=== PATIENT | male | born 1990 | race Caucasian/White ===

== ENCOUNTER 2017-10-10 17:05 | Inpatient (IN) ==
--- NOTE | 2017-10-10 17:18 | Emergency Department Note ---
Disposition Clinical Impression: Suicidal ideation Depression Qualifiers: Depression Type: unspecified Qualified Code(s): F32.9 - Major depressive disorder, single episode, unspecified Disposition: Admitted As Inpatient Condition: Fair Forms: ED Satisfaction Letter Time of Disposition: 20:06 Psych HPI - General Chief Complaint: ED Psychiatric Symptoms Stated Complaint: Psych Time Seen by Provider: 10/10/17 17:11 Source: patient, EMS Mode of arrival: ambulatory Limitations: no limitations Nursing Notes Reviewed: Yes Vital Signs Reviewed: Yes - History of Present Illness HPI Narrative: 27-year-old who has a long history of substance abuse is been using amphetamines the last year or so who has had increasing depression over the last several weeks and has had some suicidal ideation today. He last used methamphetamine a couple of days ago. Pt complaint: suicidal ideation, feels depressed If medical clearance, reason: psychiatric condition Onset (ago): Just [employer] Duration: constant History of similar episodes: Yes Improves with: none Worsens with: none Associated Psychiatric Symptoms: depression, suicidal ideation Associated symptoms: Reports: denies other symptoms Traumatic symptoms: denies traumatic injury Treatments prior to arrival: none - Related Data Home Medications Medication Instructions Recorded Confirmed Benadryl 07/11/16 Robitussin 07/11/16 Tylenol 07/11/16 Allergies Allergy/AdvReac Type Severity Reaction Status Date / Time No Known Allergies Allergy Verified 07/11/16 15:55 All systems ED: reviewed and negative except as stated. Constitutional: Denies: fever, chills, weakness, weight change Eyes: Denies: eye pain, eye discharge, vision change ENT ED: Denies: ear pain, throat pain, dental pain, hearing loss, epistaxis, congestion, dysphagia Cardiovascular: Denies: chest pain, palpitations, dyspnea on exertion, edema, syncope Respiratory: Denies: cough, dyspnea, wheezes, hemoptysis, stridor Gastrointestinal: Denies: abdominal pain, nausea, vomiting, diarrhea, constipation, hematemesis, melena, hematochezia Genitourinary: Denies: urgency, dysuria, frequency, hematuria Musculoskeletal: Denies: back pain, neck pain, arthralgia, myalgia Integumentary: Denies: rash, abrasion, lesions Neurological: Denies: headache, weakness, numbness, paresthesias, confusion, abnormal gait, vertigo Psychiatric: Reports: depression, suicidal thoughts. Denies: anxiety, homicidal thoughts, auditory hallucinations, visual hallucinations Endocrine: Denies: fatigue Hematological/Lymphatic: Denies: easy bleeding, easy bruising Allergic/Immunologic: Denies: facial swelling, urticaria Past Medical History - Past Medical History Medical history: Reports: no medical history Psychiatric history: Reports: no psych history - Social History Smoking Status: Never smoker Smokeless Tobacco Status: No Alcohol use: Reports: none Drug use: Reports: methamphetamine Physical Exam - General Limitations: no limitations General appearance: alert, in no apparent distress - Head Head exam: atraumatic, normocephalic, normal inspection - Eye Eye exam: Present: normal appearance, PERRL, EOMI - ENT ENT exam: normal exam, normal oropharynx, mucous membranes moist - Neck Neck exam: Present: normal inspection, full ROM, trachea midline - Chest Chest inspection: Present: normal inspection, symmetric chest wall rise - Respiratory Respiratory exam: Present: normal lung sounds bilaterally - Cardiovascular Cardiovascular exam: Present: regular rate, normal rhythm, normal heart sounds - Abdominal Exam Abdominal exam: Present: soft, Non-Tender. Absent: tenderness, distention, guarding, rebound, rigidity - Extremities Exam Extremities exam: Present: normal inspection, full ROM. Absent: tenderness, pedal edema - Expanded Lower Extremity Exam Neurovascular/Tendon exam: Absent: motor deficit, sensory deficit, tendon deficit Gait: observed and normal - Back Exam Back exam: Present: normal inspection, full ROM. Absent: tenderness - Neurological Exam Neurological exam: Present: alert, oriented X3 - Psychiatric Psychiatric exam: Present: depressed, suicidal ideation - Skin Skin exam: Present: warm, dry, intact, normal color Course - Reevaluation(s) Reevaluation #1: 27-year-old with a history of substance abuse the past comes in with suicidal ideation with depression. Patient will be admitted to psychiatry. Time: 20:06 Vital Signs Temperature 98.0 F 10/10/17 17:06 Pulse Rate 99 10/10/17 17:06 Respiratory Rate 16 10/10/17 17:06 Blood Pressure 134/87 10/10/17 17:06 O2 Sat by Pulse Oximetry 99 10/10/17 17:06 Temperature 98.0 F 10/10/17 17:06 Pulse Rate 99 10/10/17 17:06 Respiratory Rate 16 10/10/17 17:06 Blood Pressure 134/87 10/10/17 17:06 O2 Sat by Pulse Oximetry 99 10/10/17 17:06 Oxygen Delivery Oxygen Delivery Room Air Psych - Lab Data Result diagrams: 10/10/17 17:36 10/10/17 17:36 Lab Results 10/10/17 10/10/17 10/10/17 Range/Units 17:36 17:36 17:52 WBC 6.6 (4.3-11.1) K/mcL RBC 5.30 (4.19-5.50) M/mcL Hgb 16.3 (12.9-16.9) g/dL Hct 48.8 (37.5-50.1) % MCV 92.1 (83.0-100.0) fL MCH 30.8 (28.0-33.3) pg MCHC 33.4 (31.6-35.5) g/dL RDW 12.8 (11.5-14.5) % Plt Count 213 (140-400) K/mcL MPV 10.6 (9.4-12.4) fL Immature Gran % 0.2 (0-4) % Seg Neutrophils % 59.3 % Lymphocytes % 25.8 % Monocytes % 8.3 % Eosinophils % 5.3 % Basophils % 1.1 % Neutrophils # 3.9 (1.6-8.9) K/mcL Lymphocytes # 1.7 (0.6-4.6) K/mcL Monocytes # 0.6 (0.0-1.3) K/mcL Eosinophils # 0.4 (0.0-0.6) K/mcL Basophils # 0.1 (0.0-0.2) K/mcL Sodium 138 (136-145) mEq/L Potassium 3.9 (3.5-5.1) mEq/L Chloride 103 (98-107) mEq/L Carbon Dioxide 27 (23-29) mEq/L BUN 13 (6-20) mg/dL Creatinine 1.18 (0.70-1.30) mg/dL Est GFR ( Amer) > 60 (> 60) Est GFR (Non-Af Amer) > 60 (> 60) BUN/Creatinine Ratio 11 (6-26) Glucose 72 (70-105) mg/dL Calculated Osmolality 285 (280-300) Calcium 9.3 (8.6-10.3) mg/dL Urine Color Yellow (Yellow) Urine Clarity Clear (Clear) Urine pH 6.0 (5.0-8.0) pH Units Ur Specific [place] 1.020 (1.010-1.025) Urine Protein Negative (Neg-Trace) mg/dL Urine Glucose (UA) Normal (Normal) mg/dL Urine Ketones Negative (Negative) mg/dL Urine Blood Negative (Negative) Urine Nitrite Negative (Negative) Urine Bilirubin Negative (Negative) Urine Urobilinogen Normal (Normal) mg/dL Ur Leukocyte Esterase Negative (Negative) Salicylates < 2.5 L (15.0-30.0) mg/dL Urine Opiates Screen (Qgigcp=879) ng/mL Acetaminophen < 10 L (10-20) mcg/mL Ur Barbiturates Screen (Ktwqcv=026) ng/mL Ur Phencyclidine Scrn (Cutoff=25) ng/mL Ur Amphetamines Screen (Wlhgyd=9478) ng/mL U Benzodiazepines Scrn (Jjgcqw=661) ng/mL Urine Cocaine Screen (Cutoff= 300) ng/mL U Marijuana (THC) Screen (Cutoff = 50) ng/mL Ethyl Alcohol < 10 (Less than 10) mg/dL 10/10/17 Range/Units 17:52 WBC (4.3-11.1) K/mcL RBC (4.19-5.50) M/mcL Hgb (12.9-16.9) g/dL Hct (37.5-50.1) % MCV (83.0-100.0) fL MCH (28.0-33.3) pg MCHC (31.6-35.5) g/dL RDW (11.5-14.5) % Plt Count (140-400) K/mcL MPV (9.4-12.4) fL Immature Gran % (0-4) % Seg Neutrophils % % Lymphocytes % % Monocytes % % Eosinophils % % Basophils % % Neutrophils # (1.6-8.9) K/mcL Lymphocytes # (0.6-4.6) K/mcL Monocytes # (0.0-1.3) K/mcL Eosinophils # (0.0-0.6) K/mcL Basophils # (0.0-0.2) K/mcL Sodium (136-145) mEq/L Potassium (3.5-5.1) mEq/L Chloride (98-107) mEq/L Carbon Dioxide (23-29) mEq/L BUN (6-20) mg/dL Creatinine (0.70-1.30) mg/dL Est GFR ( Amer) (> 60) Est GFR (Non-Af Amer) (> 60) BUN/Creatinine Ratio (6-26) Glucose (70-105) mg/dL Calculated Osmolality (280-300) Calcium (8.6-10.3) mg/dL Urine Color (Yellow) Urine Clarity (Clear) Urine pH (5.0-8.0) pH Units Ur Specific [place] (1.010-1.025) Urine Protein (Neg-Trace) mg/dL Urine Glucose (UA) (Normal) mg/dL Urine Ketones (Negative) mg/dL Urine Blood (Negative) Urine Nitrite (Negative) Urine Bilirubin (Negative) Urine Urobilinogen (Normal) mg/dL Ur Leukocyte Esterase (Negative) Salicylates (15.0-30.0) mg/dL Urine Opiates Screen Negative (Usheeg=682) ng/mL Acetaminophen (10-20) mcg/mL Ur Barbiturates Screen Negative (Mrbfkv=791) ng/mL Ur Phencyclidine Scrn Negative (Cutoff=25) ng/mL Ur Amphetamines Screen Positive H (Tlwvol=4318) ng/mL U Benzodiazepines Scrn Negative (Fcszvd=087) ng/mL Urine Cocaine Screen Negative (Cutoff= 300) ng/mL U Marijuana (THC) Screen Negative (Cutoff = 50) ng/mL Ethyl Alcohol (Less than 10) mg/dL Psychiatric Medical Clearance - Medical Clearance Checklist Medical History: Viral infection (Inactive) No Social History Section defined Current Vitals: Last Vital Signs Temp 98.0 F 10/10/17 17:06 Pulse 99 10/10/17 17:06 Resp 16 10/10/17 17:06 BP 134/87 10/10/17 17:06 Pulse Ox 99 10/10/17 17:06 Psychiatric Lab Panel: Drug Levels and Toxicity 10/10/17 10/10/17 17:36 17:52 Urine Opiates Screen Negative Acetaminophen < 10 L Ur Barbiturates Screen Negative Ur Phencyclidine Scrn Negative Ur Amphetamines Screen Positive H U Benzodiazepines Scrn Negative Urine Cocaine Screen Negative U Marijuana (THC) Screen Negative Ethyl Alcohol < 10 Abnormal Labs: Abnormal lab results Salicylates < 2.5 mg/dL (15.0-30.0) L 10/10/17 17:36 Acetaminophen < 10 mcg/mL (10-20) L 10/10/17 17:36 Ur Amphetamines Screen Positive ng/mL (Asuacp=4037) H 10/10/17 17:52 Statement of Medical Clearance: I have evaluated the patient, reviewed diagnostic information, and certify that the patient's medical condition is sufficiently stable that transfer to the psychiatric unit does not pose a significant risk of deterioration.
[2017-10-10 17:48] LABS: Basophils # 0.1 K/mcL (0.0-0.2); Basophils % 1.1 %; Eosinophils # 0.4 K/mcL (0.0-0.6); Eosinophils % 5.3 %; Hematocrit 48.8 % (37.5-50.1); Hemoglobin 16.3 g/dL (12.9-16.9); Immature Granulocytes % 0.2 % (0-4); Lymphocytes # 1.7 K/mcL (0.6-4.6); Lymphocytes % 25.8 %; Mean Corpuscular HGB Conc 33.4 g/dL (31.6-35.5); Mean Corpuscular Hemoglobin 30.8 pg (28.0-33.3); Mean Corpuscular Volume 92.1 fL (83.0-100.0); Mean Platelet Volume 10.6 fL (9.4-12.4); Monocytes # 0.6 K/mcL (0.0-1.3); Monocytes % 8.3 %; Neutrophils # 3.9 K/mcL (1.6-8.9); Platelet Count 213 K/mcL (140-400); Red Cell Distribution Width 12.8 % (11.5-14.5); Segmented Neutrophils % 59.3 %
[2017-10-10 18:03] LABS: Bilirubin,Urine Negative (Negative); Blood,Urine Negative (Negative); Clarity,Urine Clear (Clear); Color,Urine Yellow (Yellow); Glucose,Urine (UA) Normal (Normal); Ketones,Urine Negative (Negative); Leukocyte Esterase,Urine Negative (Negative); Nitrite,Urine Negative (Negative); Protein,Urine Negative (Neg-Trace); Urobilinogen,Urine Normal (Normal)
[2017-10-10 18:07] LABS: Acetaminophen < 10 mcg/mL (10-20); BUN/Creatinine Ratio 11 (6-26); Blood Urea Nitrogen 13 mg/dL (6-20); Calcium 9.3 mg/dL (8.6-10.3); Carbon Dioxide 27 mEq/L (23-29); Chloride 103 mEq/L (98-107); Ethanol < 10 mg/dL (Less than 10); Glucose 72 mg/dL (70-105); Osmolality,Calculated 285 (280-300); Potassium 3.9 mEq/L (3.5-5.1); Salicylate < 2.5 mg/dL (15.0-30.0); Sodium 138 mEq/L (136-145); eGFR For African Americans > 60 (> 60); eGFR For Non-African Americans > 60 (> 60)
[2017-10-10 18:12] LABS: Amphetamine Screen,Urine Positive ng/mL (Cutoff=1000); Barbiturate Screen,Urine Negative ng/mL (Cutoff=200); Benzodiazepines Screen,Urine Negative ng/mL (Cutoff=200); Cannabinoid Screen,Urine Negative ng/mL (Cutoff = 50); Cocaine Screen,Urine Negative ng/mL (Cutoff= 300); Opiate Screen,Urine Negative ng/mL (Cutoff=300); Phencyclidine Screen,Urine Negative ng/mL (Cutoff=25)
[2017-10-10] MEDS ORDERED: traZODone 50 MG TABLET PO PRN (20:17)
[2017-10-10] MEDS ORDERED: hydrOXYzine pamoate 25 MG CAPSULE PO PRN (20:17)
[2017-10-10] MEDS ORDERED: *HR* LORazepam 1 MG TABLET PO PRN (20:17)
[2017-10-10] MEDS ORDERED: MOM Conc 10 ML UD.LIQ PO PRN (20:17)
[2017-10-10] MEDS ORDERED: Mag Hydrox/Al Hydrox/Simeth 30 ML UDC PO PRN (20:17)
[2017-10-10] MEDS ORDERED: Haloperidol Lactate 5 MG/ML VIAL IM PRN (20:17)
[2017-10-10] MEDS ORDERED: *HR* LORazepam 2 MG/ML VIAL IM PRN (20:17)
--- NOTE | 2017-10-11 10:37 | Psychiatry History & Physical ---
Date of Encounter: 10/11/17 Time of Encounter: 10:35 History of Present Illness Patient Stated Chief Complaint: "I just can't keep living like this." Medicare Admission Attestation: For traditional Medicare patients the provided hospital inpatient services are reasonable and necessary and in the case of services not specified as inpatient -only under 42 CFR 419.22 (n), that they are appropriately provided as inpatient services in accordance 42 CFR 412.3. For Critical Access Hospital the patient may reasonably be expected to be discharged or transferred to a hospital within 96 hours after admission to the Critical Access Hospital. Admitted From: Emergency Dept Plans for Post Hospital Care: Home History of Present Illness: Mr. Simmons is a 27 year old male with a history of depression, substance abuse as well as a history of trauma as a child who presented to the hospital with severe depression, paranoia, and suicidal ideations. Patient states that he has been treated several times for substance abuse issues. He has used almost every drug but cocaine and LSD. He reports that he has been to rehabilitation 3-4 times and continues to go back to drugs. Most recently he has mainly been using methamphetamine. He reports that his use is intermittent. He has been using a gram a day for the past several days. He reports increasing difficulty with sleep and increasing tenriism preoccupation and paranoia. "I just keep reading the Bible over and over again and thinking it is real." He admits to having difficulty telling fantasy from reality. He states that a lot of times when he is using drugs she does start to think of wanting to hurt himself. Today he does not want to but he also feels frustrated with his current living situation and habits and feels they need to be changed. "I keep doing the same thing over and over again and it is not working." He denies auditory or visual hallucinations although he does mention thinking that someone told him to hurt himself. He does not remember much about the last 3-4 days. He states that his father also had issues with paranoia. He reports that his current living environment is not conducive to getting better. He apparently told staff that he does not want to be allowed back in his mom's because he keeps ending up using drugs again. Patient reports that his sleep is usually better when he is not using meth but lately his sleep has been intermittent and poor. He gets anxious and worried especially when using methamphetamine. He does not appear to be responding to internal stimuli the interview. He has cohesive thoughts and appears to understand at least on some level, although methamphetamines may be affecting his overall mental health. Past Med Surg Social Fam HX - Past Medical History Medical history: no medical history - Past Psychiatric History Psychiatric history: Reports: depression. Denies: previous psychiatric hospitalization Past psychiatric history details: No previous admission or suicide attempts. Meth abuse. Depression with no previous filler leaf cutter long treatment. No outpatient counseling. Past substance abuse treatment. Family Psychiatric History Details: Mom and Dad have history of psych admissions. Possible bipolar disorder. Family History of Suicide: None - Past Surgical History Surgical History: no surgical history - Social History Smoking Status: Never smoker Packs per day: 1 Smokeless Tobacco Status: No Alcohol use: none Drug use: methamphetamine Occupational status: unemployed Current living situation: Home (lives with his mom and boyfriend...now homeless. ) Activity Level: Independent ambulation Medications & Allergies No Known Home Drugs 10/10/17 [History] 3 Allergy/AdvReac Type Severity Reaction Status Date / Time No Known Allergies Allergy Verified 07/11/16 15:55 Review of Systems Constitutional: Denies: fever, chills, weakness, weight change Eyes: Denies: eye pain, vision change Ears, Nose, Throat: Denies: ear pain, throat pain, dental pain, hearing loss, congestion Cardiovascular: Denies: chest pain, palpitations, dyspnea on exertion Respiratory: Denies: cough, dyspnea, wheezes Gastrointestinal: Denies: abdominal pain, nausea, vomiting, diarrhea, constipation Genitourinary male: Denies: urgency, dysuria, frequency, genital lesions Musculoskeletal: Denies: joint swelling, joint pain Integumentary: Denies: rash, lesions, pruritus Neurological: Denies: headache, weakness, numbness, memory loss Psychiatric: Reports: depression, anxiety, abnormal sleep pattern, suicidal ideation, anhedonia, difficulty concentrating, irritability, mood swings, other (paranoia ) Endocrine: Denies: fatigue, heat or cold intolerance Hematologic/Lymphatic: Denies: easy bruising, lymphadenopathy Allergic/Immunologic: Denies: urticaria, itchy eyes Exam - HEENT Head exam IM: Present: atraumatic Eye exam IM: Present: EOMI ENT exam IM: Present: normal exam - Neurological Neurological exam: Present: CN II-XII intact - Respiratory Respiratory exam IM: Present: CTAB - GI/Abdominal GI/Abdominal exam IM: Present: normal bowel sounds, soft. Absent: tenderness - Extremities Extremities exam IM: Present: full ROM - Skin Skin exam IM: Present: dry, warm - Constitutional Vitals: Temp Pulse Resp BP Pulse Ox 98.6 F 79 16 133/82 99 10/11/17 08:50 10/11/17 08:50 10/11/17 08:50 10/11/17 08:50 10/10/17 17:06 General appearance: age & developmentally appropriate, unkempt, thin - Musculoskeletal Gait: normal Station: relaxed Strength & Tone: normal for patient - Psychiatric Patient Orientation: Yes Person, Yes Time, Yes Place Level of alertness: Alert Behavior: calm, guarded Psychomotor activity: Normal Eye Contact: Minimal Contact Mood Description: Depressed Affect description: dysphoric Speech Volume: Normal Speech pattern: normal rate, normal rhythm, normal tone Language & Vocabulary: consistent with education Thought Process: Intact Thought Content: Yes Suicidal ideation, Yes Sabianism delusion Perceptual Disturbances: No Reacting to internal stimuli, No Auditory hallucinations, No Visual hallucinations Attention Span Ability: Capable of Focused Attention Memory Description: Grossly Intact Patient Reliability: Reliable Historian Fund of knowledge: Yes average Intelligence Estimate: Average Judgment: Limited Insight: Partial Results - Labs Labs: Laboratory Last Values WBC 6.6 K/mcL (4.3-11.1) 10/10/17 17:36 RBC 5.30 M/mcL (4.19-5.50) 10/10/17 17:36 Hgb 16.3 g/dL (12.9-16.9) 10/10/17 17:36 Hct 48.8 % (37.5-50.1) 10/10/17 17:36 MCV 92.1 fL (83.0-100.0) 10/10/17 17:36 MCH 30.8 pg (28.0-33.3) 10/10/17 17:36 MCHC 33.4 g/dL (31.6-35.5) 10/10/17 17:36 RDW 12.8 % (11.5-14.5) 10/10/17 17:36 Plt Count 213 K/mcL (140-400) 10/10/17 17:36 MPV 10.6 fL (9.4-12.4) 10/10/17 17:36 Immature Gran % 0.2 % (0-4) 10/10/17 17:36 Seg Neutrophils % 59.3 % 10/10/17 17:36 Lymphocytes % 25.8 % 10/10/17 17:36 Monocytes % 8.3 % 10/10/17 17:36 Eosinophils % 5.3 % 10/10/17 17:36 Basophils % 1.1 % 10/10/17 17:36 Neutrophils # 3.9 K/mcL (1.6-8.9) 10/10/17 17:36 Lymphocytes # 1.7 K/mcL (0.6-4.6) 10/10/17 17:36 Monocytes # 0.6 K/mcL (0.0-1.3) 10/10/17 17:36 Eosinophils # 0.4 K/mcL (0.0-0.6) 10/10/17 17:36 Basophils # 0.1 K/mcL (0.0-0.2) 10/10/17 17:36 Sodium 138 mEq/L (136-145) 10/10/17 17:36 Potassium 3.9 mEq/L (3.5-5.1) 10/10/17 17:36 Chloride 103 mEq/L (98-107) 10/10/17 17:36 Carbon Dioxide 27 mEq/L (23-29) 10/10/17 17:36 BUN 13 mg/dL (6-20) 10/10/17 17:36 Creatinine 1.18 mg/dL (0.70-1.30) 10/10/17 17:36 Est GFR ( Amer) > 60 (> 60) 10/10/17 17:36 Est GFR (Non-Af Amer) > 60 (> 60) 10/10/17 17:36 BUN/Creatinine Ratio 11 (6-26) 10/10/17 17:36 Glucose 72 mg/dL (70-105) 10/10/17 17:36 Calculated Osmolality 285 (280-300) 10/10/17 17:36 Calcium 9.3 mg/dL (8.6-10.3) 10/10/17 17:36 Urine Color Yellow (Yellow) 10/10/17 17:52 Urine Clarity Clear (Clear) 10/10/17 17:52 Urine pH 6.0 pH Units (5.0-8.0) 10/10/17 17:52 Ur Specific [place] 1.020 (1.010-1.025) 10/10/17 17:52 Urine Protein Negative mg/dL (Neg-Trace) 10/10/17 17:52 Urine Glucose (UA) Normal mg/dL (Normal) 10/10/17 17:52 Urine Ketones Negative mg/dL (Negative) 10/10/17 17:52 Urine Blood Negative (Negative) 10/10/17 17:52 Urine Nitrite Negative (Negative) 10/10/17 17:52 Urine Bilirubin Negative (Negative) 10/10/17 17:52 Urine Urobilinogen Normal mg/dL (Normal) 10/10/17 17:52 Ur Leukocyte Esterase Negative (Negative) 10/10/17 17:52 Salicylates < 2.5 mg/dL (15.0-30.0) L 10/10/17 17:36 Urine Opiates Screen Negative ng/mL (Ibkeam=087) 10/10/17 17:52 Acetaminophen < 10 mcg/mL (10-20) L 10/10/17 17:36 Ur Barbiturates Screen Negative ng/mL (Vkmmtj=984) 10/10/17 17:52 Ur Phencyclidine Scrn Negative ng/mL (Cutoff=25) 10/10/17 17:52 Ur Amphetamines Screen Positive ng/mL (Wqcrdj=9017) H 10/10/17 17:52 U Benzodiazepines Scrn Negative ng/mL (Aziwkv=059) 10/10/17 17:52 Urine Cocaine Screen Negative ng/mL (Cutoff= 300) 10/10/17 17:52 U Marijuana (THC) Screen Negative ng/mL (Cutoff = 50) 10/10/17 17:52 Ethyl Alcohol < 10 mg/dL (Less than 10) 10/10/17 17:36 Assessment and Plan (1) Major depressive disorder with psychotic features Current visit: Yes Status: Acute Plan: Admit inpatient for safety and stabilization, Close observation, Suicide Precautions per unit protocol, Encourage participation in unit milieu, Group Therapy, Monitor sleep, Monitor appetite Additional Plan: Encourage patient to attend group and unit activities. Start Celexa for depression symptoms. Start Abilify for paranoia and psychotic symptoms that may be associated with depression or may be associated with his underlying drug use. Patient admits that there are times he feels paranoid even when he is not using drugs. Monitor closely for improvement in symptoms and titrate meds accordingly. Monitor closely for side effects.. Risks, benefits, side effects, alternatives discussed w/pt: Yes Patient agreeable to treatment: Yes Plans for Post Hospital Care: Home Estimated Length of Stay (Days): 3 Qualifiers: Major depression recurrence: recurrent Active/Remission status: currently active Major depression episode severity: severe Qualified Code(s): F33.3 - Major depressive disorder, recurrent, severe with psychotic symptoms (2) Amphetamine abuse, episodic Current visit: Yes Status: Acute Plan: Admit inpatient for safety and stabilization, Close observation, Suicide Precautions per unit protocol, Encourage participation in unit milieu, Group Therapy, Monitor sleep, Monitor appetite Additional Plan: Encouraged patient to discontinue use. Encourage patient to consider outpatient substance abuse treatment. Risks, benefits, side effects, alternatives discussed w/pt: Yes Patient agreeable to treatment: Yes
[2017-10-11] MEDS: Acetaminophen 325 MG TABLET PO PRN (20:57)
[2017-10-12] MEDS: Acetaminophen 325 MG TABLET PO PRN ×2 (08:12→16:04)
[2017-10-12] MEDS: ARIPiprazole 2 MG TABLET PO SCH (10:44)
--- NOTE | 2017-10-12 10:56 | Psychiatry Progress Note ---
Date of Encounter: 10/12/17 Time of Encounter: 10:00 Subjective Interval history: Patient seen today for follow-up and notes reviewed. Today patient has withdrawn to his room dysphoric and quiet. He is unable to verbalize how he is doing and what his symptoms might be. At times his speech is halted as if he may be responding to internal stimuli. Other staff have also noted some odd behaviors. Patient admits to poor memory and not realizing even what symptoms he is having a he has verbalized in the past. Patient willing to take meds and reports he did call the [facility] about rehabilitation for his drug use. Review of Systems Psychiatric: Reports: depression, anxiety, abnormal sleep pattern, suicidal ideation, anhedonia, difficulty concentrating, irritability, mood swings, other (paranoia ) Results - Vital Signs Vital Signs: Temp Pulse Resp BP Pulse Ox 97.2 F L 76 16 141/84 99 10/12/17 08:46 10/12/17 08:46 10/12/17 08:46 10/12/17 08:46 10/10/17 17:06 Assessment and Plan (1) Major depressive disorder with psychotic features Current visit: Yes Status: Acute Plan: Continue hospitalization, Close observation, Suicide Precautions per unit protocol, Encourage participation in unit milieu, Group Therapy, Monitor sleep, Monitor appetite Additional Plan: Continue Celexa and Abilify combination. Monitor for improvement and consider increasing Abilify depending on patient's response. Encourage group attendance. Risks, benefits, side effects, alternatives discussed w/pt: Yes Patient agreeable to treatment: Yes Qualifiers: Major depression recurrence: recurrent Active/Remission status: currently active Major depression episode severity: severe Qualified Code(s): F33.3 - Major depressive disorder, recurrent, severe with psychotic symptoms (2) Amphetamine abuse, episodic Current visit: Yes Status: Acute Additional Plan: Encourage patient to attend rehabilitation once discharged from this unit. Risks, benefits, side effects, alternatives discussed w/pt: Yes Patient agreeable to treatment: Yes Consult Discharge Plan - Plan Referrals: NONE,PCP [Primary Care Provider] - Psychiatry Exam - Constitutional Vitals: Temp Pulse Resp BP Pulse Ox 97.2 F L 76 16 141/84 99 10/12/17 08:46 10/12/17 08:46 10/12/17 08:46 10/12/17 08:46 10/10/17 17:06 General appearance: unkempt - Musculoskeletal Gait: normal Station: relaxed Strength & Tone: normal for patient - Psychiatric Patient Orientation: Yes Person, Yes Time, Yes Place Level of alertness: Alert Behavior: calm, cooperative Psychomotor activity: Normal Eye Contact: Fleeting Contact Mood Description: Euthymic/stable Affect description: flat Speech Volume: Soft/Quiet Speech pattern: limited Thought Process: Thought Blocking, [place], Slowed Thinking Thought Content: Yes Suicidal ideation Perceptual Disturbances: Yes Reacting to internal stimuli, No Auditory hallucinations, No Visual hallucinations Attention Span Ability: Unable to Focus Memory Description: Immediate Impaired, Recent Impaired Patient Reliability: Not Reliable Historian Fund of knowledge: Yes below average Intelligence Estimate: Average Judgment: Limited Insight: Minimal
[2017-10-13] MEDS: ARIPiprazole 2 MG TABLET PO SCH (08:06)
[2017-10-13] MEDS: Acetaminophen 325 MG TABLET PO PRN (08:07)
[2017-10-13] MEDS ORDERED: ARIPiprazole 2 MG TABLET PO ONE (09:03)
--- NOTE | 2017-10-13 10:53 | Psychiatry Progress Note ---
Date of Encounter: 10/13/17 Time of Encounter: 08:50 Subjective Interval history: Patient is seen today for follow-up. He is much more alert and oriented today. He is able to carry on a conversation in an organized manner. Affect is more full range. He reports that he feels much better and he thinks that he is on thoughts related to his methamphetamine use. We discussed that discontinuing use of methamphetamines would be necessary in order to improve his overall mental health well from a depression standpoint as well as the psychosis standpoint. He does think the Abilify thinks of it tired and his willing to try to take it at bedtime. He denies suicidal or homicidal ideation, intent, or plan. He is interested in potentially going to the [facility] for substance abuse treatment. He may have a phone interview with them today. He denies sleep issues. Review of Systems Constitutional: Reports: other (Fatigue) Eyes: Denies: eye pain, vision change Ears, Nose, Throat: Denies: ear pain, throat pain, dental pain, hearing loss, congestion Cardiovascular: Denies: chest pain, palpitations, dyspnea on exertion Respiratory: Denies: cough, dyspnea, wheezes Gastrointestinal: Denies: abdominal pain, nausea, vomiting, diarrhea, constipation Musculoskeletal: Denies: joint swelling, joint pain Neurological: Denies: headache, weakness, numbness, memory loss Psychiatric: Denies: depression, anxiety, abnormal sleep pattern, suicidal ideation, auditory hallucinations, visual hallucinations, irritability, mood swings Results - Vital Signs Vital Signs: Temp Pulse Resp BP Pulse Ox 97.6 F 71 16 129/82 99 10/13/17 08:34 10/13/17 08:34 10/13/17 08:34 10/13/17 08:34 10/10/17 17:06 Assessment and Plan (1) Major depressive disorder with psychotic features Current visit: Yes Status: Acute Plan: Continue hospitalization, Close observation, Suicide Precautions per unit protocol, Encourage participation in unit milieu, Group Therapy, Monitor sleep, Monitor appetite Additional Plan: We will increase Abilify but moved dosage to nighttime. Continue other meds the same. Patient's symptoms are improving significantly. We will plan for discharge tomorrow. Risks, benefits, side effects, alternatives discussed w/pt: Yes Patient agreeable to treatment: Yes Qualifiers: Major depression recurrence: recurrent Active/Remission status: currently active Major depression episode severity: severe Qualified Code(s): F33.3 - Major depressive disorder, recurrent, severe with psychotic symptoms (2) Amphetamine abuse, episodic Current visit: Yes Status: Acute Risks, benefits, side effects, alternatives discussed w/pt: Yes Patient agreeable to treatment: Yes Consult Discharge Plan - Plan Referrals: NONE,PCP [Primary Care Provider] - Psychiatry Exam - Constitutional Vitals: Temp Pulse Resp BP Pulse Ox 97.6 F 71 16 129/82 99 10/13/17 08:34 10/13/17 08:34 10/13/17 08:34 10/13/17 08:34 10/10/17 17:06 General appearance: age & developmentally appropriate, well-groomed, well- nourished - Musculoskeletal Gait: normal Station: relaxed Strength & Tone: normal for patient - Psychiatric Patient Orientation: Yes Person, Yes Time, Yes Place Level of alertness: Alert Behavior: calm, cooperative Psychomotor activity: Normal Eye Contact: Maintains Eye Contact Mood Description: Euthymic/stable Affect description: congruent with mood, full range Speech Volume: Normal Speech pattern: normal rate, normal rhythm, normal tone, fluent, spontaneous Language & Vocabulary: consistent with education Thought Process: Linear, Goal Oriented Thought Content: No Suicidal ideation, No Homicidal ideation, No Overt delusions Perceptual Disturbances: No Auditory hallucinations, No Visual hallucinations Attention Span Ability: Capable of Focused Attention Memory Description: Grossly Intact Patient Reliability: Reliable Historian Fund of knowledge: Yes abstraction ability, Yes aware of current events Intelligence Estimate: Average Judgment: Limited Insight: Minimal
[2017-10-14] MEDS ORDERED: ARIPiprazole 2 MG TABLET PO SCH ×2 (09:00→21:00)
[2017-10-14] MEDS: Acetaminophen 325 MG TABLET PO PRN (09:07)
[2017-10-14 10:21] VITALS: BP 134/92
--- NOTE | 2017-10-14 12:49 | Discharge Summary ---
Date of Encounter: 10/14/17 Time of Encounter: 11:00 Diagnosis - Discharge Diagnosis (1) Major depressive disorder with psychotic features Priority: Primary Status: Acute Qualifiers: Major depression recurrence: recurrent Active/Remission status: currently active Major depression episode severity: severe Qualified Code(s): F33.3 - Major depressive disorder, recurrent, severe with psychotic symptoms (2) Amphetamine abuse, episodic Priority: Secondary Status: Acute Medications - Discharge Medications Prescriptions: ARIPiprazole [Abilify] 5 mg PO HS #30 tablet Citalopram [CeleXA] 20 mg PO DAILY #30 tablet ARIPiprazole [Abilify] 5 mg PO HS #30 tablet 10/14/17 [Rx] Citalopram [CeleXA] 20 mg PO DAILY #30 tablet 10/14/17 [Rx] 3 Allergy/AdvReac Type Severity Reaction Status Date / Time No Known Allergies Allergy Verified 07/11/16 15:55 Provider Date of admission: 10/10/17 20:12 Primary care physician: PCP NONE Consults: 10/10/17 20:58 Consult to Pastoral Services [CONS] Routine Comment: Discharging clinician: Koki López Psychiatry Exam - Constitutional Vitals: Temp Pulse Resp BP Pulse Ox 98.1 F 69 16 134/92 99 10/14/17 09:00 10/14/17 09:00 10/14/17 09:00 10/14/17 09:00 10/10/17 17:06 General appearance: age & developmentally appropriate, well-groomed, well- nourished - Musculoskeletal Gait: normal Station: relaxed Strength & Tone: normal for patient - Psychiatric Patient Orientation: Yes Person, Yes Time, Yes Place Level of alertness: Alert Behavior: calm, cooperative Psychomotor activity: Normal Eye Contact: Maintains Eye Contact Mood Description: Euthymic/stable Affect description: congruent with mood, full range Speech Volume: Normal Speech pattern: normal rate, normal rhythm, normal tone, fluent, spontaneous Language & Vocabulary: consistent with education Thought Process: Linear, Goal Oriented Thought Content: No Suicidal ideation, No Homicidal ideation, No Overt delusions Perceptual Disturbances: No Auditory hallucinations, No Visual hallucinations Attention Span Ability: Capable of Focused Attention Memory Description: Grossly Intact Patient Reliability: Reliable Historian Fund of knowledge: Yes abstraction ability, Yes aware of current events Intelligence Estimate: Average Judgment: Limited Insight: Partial Hospital Course Hospital course: Mr. Simmons is a 27 year old male with a history of depression and substance abuse who presented to the hospital with paranoia, latter-day preoccupation and depression as well as suicidal ideations. He was admitted to for psychiatric stabilization. Patient was incorporated into the therapeutic milieu and offer group and individual as well as recreational therapy. He was also offered psychoeducational materials and supportive therapy. He was placed on suicide precautions and close observation per unit protocol. Patient was initially started on Abilify 2 mg and titrated up to Abilify 5 mg. He was also started on Celexa for depression. Patient did participate in some group and unit activities. He did have some confusion initially but this started to improve over the course of the hospital stay. Patient's affect became more full range and he was more conversant. Patient was able to verbalize needs to staff. Patient tolerated meds well but did report some mild sedation so the Abilify was moved to nighttime. He is willing to take meds as prescribed and continue his treatment as an outpatient. He initially was interested in going to the [facility] for drug rehabilitation. However, patient declined this but is willing to follow-up with mental health services as an outpatient. At the time of discharge he denied suicidal or homicidal ideation, intent, or plan. He did not appear to be responding to internal stimuli and was future oriented, alert and cooperative. He is discharged in stable condition. - Time Spent with Patient Total time spent providing and/or coordinating discharge services: Less than 30 minutes Assessment and Plan - Patient/Caregiver Discharge Instructions Activity: resume usual activities as tolerated Diet: regular diet - Follow up Plan Follow up with: [address] Location [Other] - 10/27/17 2:30 pm (The above appointment is with Geovanna Zamudio for primary health care and medication management services. Please arrive 15 minutes early to complete paperwork. Please bring your insurance card, photo ID and medications in their original bottles. If you are unable to keep this appointment, 24 hour business notice of cancellation is expected. The above appointment(s) reflects first availability. You may contact the office regularly to check for cancellations that may allow you to be seen sooner.) [facility] [Outside] ([facility] provides walk-in alcohol, drug and mental health assessments at [address] [place] [address]. Licensed clinicians assess mental health, evaluate the severity of substance use and abuse, determine treatment needs and facilitate referrals to the most appropriate provider. Assessment services are available Wednesday-Wednesday, from 8:00 am-3:30 pm. Please walk-in during those times to get established in care. ) Functional capacity at discharge: independent ambulation Overall status at discharge: Stable Disposition: Home, Self-Care Quality - Multiple Antipsychotics Patient discharged on 2 or more antipsychotic medications: No Procedures - Procedures Procedures: Medication Management, Crisis Stabilization, Supportive Therapy, Group Therapy, Psychoeducational Therapy
== END 2017-10-14 14:50 | disposition home or self-care (01) | DRG 751 ==
LOC: EMEROO 17:05 → 1ANU 20:12 → SUATTDRO 20:12 → 1ANU 20:22
PROVIDERS: ADMIT Psychiatry & Neurology Psychiatry; ATTEND Student in an Organized Health Care Education/Training Program